=== PATIENT | female | born 1960 | race Caucasian/White ===

== ENCOUNTER 2017-01-18 16:36 | Inpatient (IN) | payer BC ==
[~2017-01-18] VITALS: Ht 167.6 cm; Wt 41.7 kg
--- NOTE | 2017-01-18 16:45 | NUR ---
PATIENT BIB RA D/T SYNCOPAL EPISODE OUTSIDE CLINIC. PATIENT CURRENTLY A/OX 4, BREATHING EVEN AND UNLABORED ON ROOM AIR. NO SOB. PATIENTS VITALS STABLE, SAFETY AND COMFORT MEASURES IN PLACE. AWAITING MD ORDERS.
[2017-01-18] MEDS ORDERED: ONDANSETRON HCL/PF 4 MG/2 ML VIAL ONE (16:58)
[2017-01-18] MEDS ORDERED: IV NS 0.9% 1,000 ML ONE ×2 (16:58→20:50)
[2017-01-18] MEDS ORDERED: IV SET PRIMARY 1 EA INFUS.SET MC ONE (16:58)
[2017-01-18] MEDS ORDERED: ONDANSETRON HCL/PF 4 MG/2 ML VIAL IVP ONE (17:00)
[2017-01-18] MEDS ORDERED: IV NS 0.9% 1,000 ML BAG IV ONE (17:00)
--- NOTE | 2017-01-18 17:00 | NUR ---
DALY ACCESSED PER MD ORDERS.
[2017-01-18 17:04] LABS: BASOPHILS # (AUTO) 0.1 /CMM (0.0-0.2); BASOPHILS % (AUTO) 2.6 % (0.0-2.0); EOSINOPHILS % (AUTO) 0.1 % (0.0-6.0); HEMATOCRIT 43 % (33-45); HEMOGLOBIN 14.3 g/dL (11.5-14.8); LYMPHOCYTES # (AUTO) 1.4 /CMM (0.8-4.8); LYMPHOCYTES % (AUTO) 26.2 % (20.0-44.0); MEAN CORPUSCULAR HEMOGLOBIN 31 PG (26.0-33.0); MEAN CORPUSCULAR HGB CONC 33 g/dl (31.0-36.0); MEAN CORPUSCULAR VOLUME 93 fL (82-100); MONOCYTES # (AUTO) 0.6 /CMM (0.1-1.30); NEUTROPHILS # (AUTO) 3.1 /CMM (1.8-8.9); NEUTROPHILS % (AUTO) 60.1 % (43.0-81.0); PLATELET COUNT (AUTO) 559 /CMM (150-450); RDW COEFFICIENT OF VARIATION 26.3 (11.5-15.0); RED BLOOD CELL COUNT(AUTO) 4.65 MIL/uL (4.0-5.2); WHITE BLOOD COUNT (AUTO) 5.2 K/uL (4.3-11.0)
--- NOTE | 2017-01-18 17:12 | NUR ---
PATIENT MEDICATED PER MD ORDERS.
[2017-01-18 17:18] LABS: ALBUMIN 1.6 g/dL (3.4-5.0); BILIRUBIN,DIRECT 0.1 mg/dL (0.0-0.2); BILIRUBIN,TOTAL 0.4 mg/dL (0.2-1.0); CALCIUM, SERUM 7.7 mg/dL (8.5-10.1); CREATININE 1.7 mg/dL (0.6-1.3); TOTAL PROTEIN, SERUM 5.3 g/dL (6.4-8.2)
[2017-01-18 17:20] LABS: TROPONIN I 0.37 ng/mL (0.00-0.056)
[2017-01-18] MEDS ORDERED: LORA1TAB PO (17:59)
[2017-01-18] MEDS ORDERED: DIPH1TAB70 PO (17:59)
[2017-01-18] MEDS ORDERED: ONDA4TAB5 PO (17:59)
[2017-01-18] MEDS ORDERED: POTASSIUM CHLORIDE 20 MEQ TAB.PRT.SR PO ONE ×2 (18:00→18:08)
[2017-01-18] MEDS ORDERED: [UNRECOGNIZED DRUG - REMARK] IV (18:07)
[2017-01-18] MEDS ORDERED: PROC-11 PO (18:07)
[2017-01-18] MEDS ORDERED: POTASSIUM CL. PREMIX PERIPHER. 50 ML ONE ×2 (18:08→19:05)
[2017-01-18] MEDS ORDERED: IV SET PRIMARY PUMP SET 1 EA INFUS.SET MC ONE ×3 (18:09→20:51)
[2017-01-18] MEDS: POTASSIUM CL. PREMIX PERIPHER. 50 ML IV SCH ×4 (18:22→22:23)
--- NOTE | 2017-01-18 18:37 | NUR ---
CALLED [facility] BIG MACHINE CONSULTANT DOCTOR WAS PAGED.
[2017-01-18] MEDS ORDERED: Magnesium 1GM/D5W 100ML PREMIX 100 ML IV ONE (18:46)
[2017-01-18] MEDS ORDERED: Magnesium 1 GM/2 ML VIAL IV ONE (19:00)
[2017-01-18] MEDS ORDERED: MORPHINE SULFATE INJ 4 MG/ML DISP.SYRIN IV STA (19:09)
[2017-01-18] MEDS ORDERED: MORPHINE SULFATE INJ 4 MG/ML DISP.SYRIN ONE (19:10)
--- NOTE | 2017-01-18 19:30 | NUR ---
TELE/RN NOTES RECEIVED PT. FROM ER VIA [employer]boardsJOHANNA. PT. IS AWAKE, ALERT AND ORIENTED X3. BREATHING EVEN AND UNLABORED ON ROOM AIR. NO SOB, RESPIRATORY DISTRESS OR COMPLAINTS OF PAIN NOTED AT THIS TIME. ORIENTED PT. TO ROOM. PT. STATES SHE IS STILL A LITTLE DIZZY BUT THE LIGHTHEADED FEELING HAS IMPROVED SINCE ADMISSION. PLACED EXTERNAL SHREDDED FILLER CIGAR MAKER MACHINE ON PT. CURRENT RHYTHM = SINUS TACHYCARDIA HR 104. PT. WITH RIGHT UPPER CHEST WALL PORTACATH PRESENT, PATENT AND INTACT ADMINISTERING TO PT. BAG 2 OF 4 KCL AND 1GM MG. PT. WITH FAMILY MEMBER PRESENT AT BEDSIDE. BED IN LOWEST POSITION, SIDE RAILS UP X2, CALL LIGHT WITHIN REACH, WILL CONTINUE TO MONITOR.
[2017-01-18] MEDS ORDERED: LORAZEPAM 1 MG TABLET PO PRN (21:00)
[2017-01-18] MEDS ORDERED: ACETAMINOPHEN 325 MG TABLET PO PRN (21:00)
[2017-01-18] MEDS ORDERED: PROCHLORPERAZINE MALEATE 10 MG TABLET PO PRN (21:00)
[2017-01-18] MEDS ORDERED: ONDANSETRON 4 MG TAB.RAPDIS PO PRN (21:00)
[2017-01-18] MEDS ORDERED: MAG HYDROX/AL HYDROX/SIMETH 30 ML UDC PO PRN (21:00)
[2017-01-18] MEDS ORDERED: ZOLPIDEM TARTRATE 5 MG TABLET PO PRN (21:00)
[2017-01-18] MEDS ORDERED: Z GUARD REMEDY 2 OZ OINT TP PRN (21:00)
[2017-01-18] MEDS ORDERED: MAGNESIUM HYDROXIDE 30 ML UDC PO PRN (21:00)
[2017-01-18] MEDS ORDERED: HYDROCODONE/APAP 5/325MG 1 EACH TABLET PO PRN (21:00)
[2017-01-18] MEDS: IV NS 0.9% 1,000 ML IV PRN (21:03)
[2017-01-18] MEDS: ENOXAPARIN SODIUM 40 MG/0.4 ML DISP.SYRIN SQ SCH (23:15)
[2017-01-19] VITALS (8 sets, daily range): BP systolic 83–134; BP diastolic 60–75
[2017-01-19] MEDS: ONDANSETRON HCL/PF 4 MG/2 ML VIAL IVP PRN ×4 (03:30→23:33)
[2017-01-19] MEDS: HYDROMORPHONE INJ 2 MG/ML DISP.SYRIN IV PRN ×3 (03:31→21:15)
--- NOTE | 2017-01-19 06:19 | NUR ---
TELE/RN NOTES PT. IS LYING IN BED RESTING. BREATHING EVEN AND UNLABORED ON ROOM AIR. NO SOB, RESPIRATORY DISTRESS OR COMPLAINTS OF PAIN NOTED AT THIS TIME. NO COMPLAINTS OF HEADACHE OR DIZZINESS NOTED AT THIS TIME. PT. WITH EXTERNAL MAPPING SPECIALIST PRESENT AND INTACT. CURRENT RHYTHM = SINUS RHYTHM 95. PT. WITH RIGHT UPPER CHEST WALL PORTACATH PRESENT, PATENT AND INTACT ADMINISTERING TO PT. NS @ 75 ML/HR. PT. ALL PT. NEEDS MET. BED IN LOWEST POSITION, SIDE RAILS UP X2, CALL LIGHT WITHIN REACH, WILL ENDORSE TO DAYSHIFT NURSE FOR CONTINUITY OF CARE.
[2017-01-19 06:48] LABS: CALCIUM, SERUM 7.2 mg/dL (8.5-10.1); MAGNESIUM 1.9 mg/dL (1.8-2.4); PHOSPHORUS 2.8 mg/dL (2.5-4.9)
[2017-01-19 06:52] LABS: POTASSIUM 2.6 mmol/L (3.5-5.1)
[2017-01-19 06:53] LABS: BASOPHILS % (AUTO) 0.2 % (0.0-2.0); EOSINOPHILS % (AUTO) 0.8 % (0.0-6.0); HEMATOCRIT 34 % (33-45); HEMOGLOBIN 11.6 g/dL (11.5-14.8); LYMPHOCYTES % (AUTO) 33.4 % (20.0-44.0); MEAN CORPUSCULAR HEMOGLOBIN 31 PG (26.0-33.0); MEAN CORPUSCULAR HGB CONC 34 g/dl (31.0-36.0); MEAN CORPUSCULAR VOLUME 92 fL (82-100); MONOCYTES % (AUTO) 16.4 % (2.0-12.0); NEUTROPHILS # (AUTO) 2.9 /CMM (1.8-8.9); NEUTROPHILS % (AUTO) 49.2 % (43.0-81.0); PLATELET COUNT (AUTO) 427 /CMM (150-450); RDW COEFFICIENT OF VARIATION 27.3 (11.5-15.0); RED BLOOD CELL COUNT(AUTO) 3.71 MIL/uL (4.0-5.2)
--- NOTE | 2017-01-19 07:00 | NUR ---
TELE/RN NOTES RECEIVED CALL FROM LAB WITH CRITICAL POTASSIUM LEVEL OF 2.[address] BLACK[address]. BLACK NEW ORDERS: KCL 40 MEQ IVPB AND REPEAT POTASSIUM LEVEL AFTER REPLACEMENTS ARE GIVEN. WILL CARRY OUT ORDERS AND WILL ENDORSE TO DAYSHIFT NURSE.
--- NOTE | 2017-01-19 07:20 | NUR ---
VETERINARIAN OPENING NOTES RECEIVED PT. FROM NIGHTSHIFT NURSE IN STABLE CONDITION. PT. IS A/O X3. NO SOB OR SIGNS OF DISTRESS NOTED. BREATHING IS EVEN AND UNLABORED. PT. DENIES ANY DIZZINESS AT THIS TIME OR ANY PAIN. SINUS RHYTHM ON THE MONITOR WITH A HR OF 91. RIGHT CHEST WALL POTRACATH PRESENT, PATENT, AND INTACT INFUSION NS @ 75ML/HR. PT IS TOLERATING INFUSION WELL. BED IN LOW LOCKED POSITION, SIDE RAILS UP X2, CALL LIGHT WITHIN REACH. WILL CONTINUE TO MONITOR.
[2017-01-19] MEDS ORDERED: PANTOPRAZOLE 40 MG TABLET.DR PO SCH (07:30)
[2017-01-19] MEDS ORDERED: IV SET PRIMARY PUMP SET 1 EA INFUS.SET MC ONE (08:17)
[2017-01-19 08:39] LABS: BAND % (MANUAL) 5 % (0.0-5.0); EOSINOPHILS % (MANUAL) 1 % (0-4); LYMPHOCYTES % (MANUAL) 33 % (16-48); MONOCYTES % (MANUAL) 13 % (0-11.0); NEUTROPHILS % (MANUAL) 48 (42-76)
[2017-01-19] MEDS: POTASSIUM CL. PREMIX PERIPHER. 50 ML IV SCH ×4 (08:51→12:49)
[2017-01-19] MEDS: IV NS 0.9% 1,000 ML IV PRN (11:32)
[2017-01-19] MEDS ORDERED: TPN/PPN PER PHARMACY XX PRN (13:30)
[2017-01-19] MEDS ORDERED: TPN BAG #1 IV SCH ×8 (16:00)
[2017-01-19] MEDS ORDERED: FEE TPN 1 MIN EA MC ONE (16:04)
[2017-01-19] MEDS ORDERED: FILTER [FOR TRIPLE MIX] SET 1 EA INFUS.SET MC ONE (16:08)
[2017-01-19] MEDS ORDERED: DEXTROSE 50%-WATER 50 ML DISP.SYRIN IV PRN (16:30)
[2017-01-19] MEDS: BLOOD SUGAR DIAGNOSTIC 1 EACH STRIP IN SCH ×2 (18:33→23:22)
--- NOTE | 2017-01-19 18:50 | NUR ---
CLINICAL MEDICAL TRANSCRIPTIONIST CLOSING NOTES PT. REMAINS IN STABLE CONDITION. ALL NEEDS WERE ANTICIPATED FOR DURING SHIFT AND ORDERS CARRIED OUT ACCORDINGLY. TPN IS CURRENTLY INFUSING @40ML/HR. PT. IS TOLERATING INFUSION WELL. NO REDNESS OR SIGNS OF INFILTRATION TO IV SITE. BLOOD SUGAR WILL BE CHECKED IN 4 HOUR PER PROTOCOL. WILL ENDORSE TO NIGHTSHIFT NURSE TO CHECK BS AND CHINMAY
--- NOTE | 2017-01-19 20:00 | NUR ---
RECEIVED PATIENT IN BED, ALERT AND ORIENTED X4, CALM, NO SOB, NO RESPIRATORY DISTRESS, WEAK, COMPLAINING OF FEELING NAUSEOUS ALL DAY, RECEIVED ZOFRAN EARLIER. PER PATIENT, UNABLE TO KEEP ANYTHING SOLID OR LIQUID BY MOUTH. WITH EPISODES OF DIARRHEA WELL. R CHEST LEMUEL CATH IS INTACT AND INFUSING WELL WITH TPN. KEPT SAFE AND COMFORTABLE, CALL LIGHT WITHIN REACH.
--- NOTE | 2017-01-19 20:37 | NUR ---
STARTED NEW LINE TO LEFT WRIST #22, ATTEMPTED X1, GOOD BACK FLOW, PROCEDURE TOLERATED WELL.
[2017-01-19] MEDS: ENOXAPARIN SODIUM 40 MG/0.4 ML DISP.SYRIN SQ SCH (21:14)
--- NOTE | 2017-01-19 21:30 | NUR ---
BP IS 89/65 HR 97, PUT PATIENT ON TRENDELENBERG POSITION, ON NS AT 75 CC/HR, WILL CONTINUE TO TAKE BP
--- NOTE | 2017-01-19 22:18 | NUR ---
PATIENT ON TRENDELENBERG POSITION, BP 93/48 HR 96
[2017-01-19] MEDS: INSULIN REGULAR, HUMAN 100 UNIT/ML 3 ML VIAL SQ PRN (23:28)
--- NOTE | 2017-01-19 23:37 | NUR ---
COMPLAINING OF NAUSEA WITHOUT EMESIS, GIVEN ZOFRAN 4MG IVP, WILL CONTINUE TO MONITOR.
[2017-01-20] VITALS (7 sets, daily range): BP systolic 84–108; BP diastolic 48–81
--- NOTE | 2017-01-20 03:44 | NUR ---
NEW ORDER TO CHANGED PROTONIX FROM PO TO IVP, PATIENT UNABLE TO TOLERATE PO MEDICATIONS
[2017-01-20] MEDS: DIPHENOXYLATE HCL/ATROP SULF 1 UDTAB TABLET PO PRN ×2 (05:19→05:25)
[2017-01-20] MEDS: ONDANSETRON HCL/PF 4 MG/2 ML VIAL IVP PRN ×2 (05:20→12:28)
[2017-01-20] MEDS: BLOOD SUGAR DIAGNOSTIC 1 EACH STRIP IN SCH ×3 (05:38→17:47)
[2017-01-20] MEDS: INSULIN REGULAR, HUMAN 100 UNIT/ML 3 ML VIAL SQ PRN ×3 (05:42→17:47)
--- NOTE | 2017-01-20 06:04 | NUR ---
OFFERED LOMOTIL, PATIENT SAID YES, WHEN GIVING LOMOTIL, PATIENT REFUSED. PER PATIENT "I CANNOT TOLERATE ANYTHING I SWALLOW." EXPLAINED TO PATIENT ZOFRAN WAS GIVEN ALSO. PATIENT STILL REFUSED. LOMOTIL WASTED.
--- NOTE | 2017-01-20 06:47 | NUR ---
PATIENT RESTING IN BED, ALERT AND AWAKE, NO SOB, TOLERATING ROOM AIR, 02 SAT 98%, PROVIDED PAIN MEDICATION AND ANTI EMETIC DURING SHIFT, RIGHT CHEST LEMUEL CATH PATENT AND INFUSING WELL WITH TPN AT 50 CC/HR, HAD X3 LBM, MALODOROUS, ASSISTED WITH SELF CARE, WEAK, UNABLE TO STAND, ASSISTED TO BEDSIDE COMMODE. ALL NEEDS ATTENDED, CALL LIGHT WITHIN REACH.
--- NOTE | 2017-01-20 07:10 | NUR ---
BACK HOE MACHINE OPERATOR NOTES PATIENT IN BED, A/OX4. BREATHING EVEN AND NON LABORED. SINUS RHYTHM HR 86 ON THE MONITOR. RIGHT CHEST PORT A CATH INTACT, ON TPN (BAG#1) INFUSING AT 50ML/HR. NO C/O PAIN AT THIS TIME. CALL LIGHT WITHIN REACH. WILL CONT TO MONITOR.
[2017-01-20 07:15] LABS: CALCIUM, SERUM 7.4 mg/dL (8.5-10.1); CREATININE 0.7 mg/dL (0.6-1.3); PHOSPHORUS 1.2 mg/dL (2.5-4.9); POTASSIUM 2.9 mmol/L (3.5-5.1)
[2017-01-20] MEDS: HYDROMORPHONE INJ 2 MG/ML DISP.SYRIN IV PRN ×4 (07:52→22:12)
[2017-01-20] MEDS: PANTOPRAZOLE 40 MG VIAL IV SCH (07:58)
[2017-01-20] MEDS ORDERED: ASPIRIN 325 MG TABLET PO SCH (09:00)
[2017-01-20] MEDS ORDERED: IV NS 0.9% 1,000 ML BAG IV SCH (11:00)
[2017-01-20] MEDS ORDERED: IV SET PRIMARY PUMP SET 1 EA INFUS.SET MC ONE (11:00)
[2017-01-20] MEDS: IV NS 0.9% 1,000 ML IV PRN (11:41)
[2017-01-20] MEDS ORDERED: SECONDARY IV SET 1 EA INFUS.SET MC ONE (12:21)
[2017-01-20] MEDS: POTASSIUM PHOSPHATE MM 7.5 MMOL in IV D5W 100 ML IV SCH ×2 (12:32→17:01)
[2017-01-20] MEDS ORDERED: TPN BAG #2 IV SCH ×9 (13:00)
[2017-01-20] MEDS ORDERED: TPN BAG #3 IV SCH ×9 (13:00)
[2017-01-20] MEDS ORDERED: FILTER [FOR TRIPLE MIX] SET 1 EA INFUS.SET MC ONE (14:45)
[2017-01-20] MEDS: BOOST PLUS FOOD-CHOCLATE 237 ML BOX PO SCH (18:00)
--- NOTE | 2017-01-20 18:44 | NUR ---
MOTION PICTURE PROJECTIONIST CLOSING NOTES PATIENT IN BED, NOT IN DISTRESS. BLOOD SUGAR MONITORED, ON TPN (BAG #2) INFUSING AT 60ML/HR, TOLERATING WELL. ABDOMEN/PELVIS CT RESULT PENDING. NO BOWEL MOVEMENT TODAY, NO DIARRHEA. FOR STOOL CDIFF. NO C/O PAIN AT THIS TIME. LABS IN AM. CALL LIGHT WITHIN REACH. WILL ENDORSE TO HYDRO OPERATOR RN FOR CONTINUITY OF CARE.
--- NOTE | 2017-01-20 19:10 | NUR ---
RN NOTES RECEIVED PT AWAKE, HOB ELEVATED, NO SOB, NOT IN DISTRESS, ON ROOM AIR AND TOLERATED WELL. PT ALERT AND ORIENTED X3, ABDOMINAL PAIN AT TOLERABLE LEVEL AT THIS TIME 10/29. DENIES NAUSEA, VOMITING AND DIARRHEA. TELEMONITOR READS SINUS RHYTHM WITH HEART RATE AT 98. IV ACCESS ON LEFT HAND PATENT AND INTACT. WITH PORT A CATH AT RIGHT UPPER CHEST WITH ONGOING TPN #2 AT 60 ML/HR AND NS AT 75 ML/HR INFUSING WELL. KEPT COMFORTABLE AND ATTENDED. WILL CONTINUE TO MONITOR PT.
[2017-01-20] MEDS: ENOXAPARIN SODIUM 40 MG/0.4 ML DISP.SYRIN SQ SCH (21:08)
--- NOTE | 2017-01-20 21:15 | NUR ---
RN NOTES PT VERBALIZING ABDOMINAL DISCOMFORT, HEART BURN, MAALOX SUSP 30 ML GIVEN TO THE PT BUT PT SAID SHE CANNOT TOLERATE IT. PER SHE WILL VOMIT IF SHE WILL TAKE IT. PT DID NOT TAKE THE MAALOX SUSP AND WASTED. WILL CONTINUE TO MONITOR PT.
--- NOTE | 2017-01-20 22:12 | NUR ---
RN NOTES PT COMPLAINS OF ABDOMINAL PAIN 02/28, DILAUDID 1 MG GIVEN IV. WILL CONTINUE TO MONITOR PT.
[2017-01-21] VITALS (7 sets, daily range): BP systolic 103–127; BP diastolic 69–78
[2017-01-21] MEDS: BLOOD SUGAR DIAGNOSTIC 1 EACH STRIP IN SCH ×4 (00:05→17:53)
[2017-01-21] MEDS: INSULIN REGULAR, HUMAN 100 UNIT/ML 3 ML VIAL SQ PRN ×4 (00:05→17:53)
--- NOTE | 2017-01-21 00:05 | NUR ---
RN NOTES BLOOD SUGAR CHECKED 128 MG/DL, NO INSULIN COVERAGE PER SLIDING SCALE. NO SIGNS OF HYPOGLYCEMIA NOTED. WILL CONTINUE TO MONITOR PT.
[2017-01-21] MEDS: ONDANSETRON HCL/PF 4 MG/2 ML VIAL IVP PRN (02:19)
--- NOTE | 2017-01-21 02:19 | NUR ---
RN NOTES PT VOMITED ONCE AND STILL FEELS NAUSEATED, ZOFRAN 4 MG GIVEN IV. WILL CONTINUE TO MONITOR PT.
[2017-01-21] MEDS: HYDROMORPHONE INJ 2 MG/ML DISP.SYRIN IV PRN ×5 (02:23→20:19)
--- NOTE | 2017-01-21 02:23 | NUR ---
RN NOTES PT COMPLAINS OF ABDOMINAL PAIN 02/28, DILAUDID 1MG GIVEN IV.WILL CONTINUE TO MONITOR PT.
--- NOTE | 2017-01-21 06:06 | NUR ---
RN NOTES BLOOD SUGAR CHECKED 127 MG/DL, NO INSULIN COVERAGE PER SLIDING SCALE. NO SIGNS OF HYPOGLYCEMIA NOTED. WILL CONTINUE TO MONITOR PT.
--- NOTE | 2017-01-21 07:10 | NUR ---
RN NOTES PT ASLEEP, BREATHING REGULAR AND UNLABORED, NO SIGNS OF DISTRESS AND DISCOMFORT NOTED. VITAL SIGNS STABLE, AFEBRILE. TELE MONITOR READS SINUS RHYTHM WITH HEART RATE AT 94. PT VOMITED ONCE, NO EPISODE OF WATERY STOOL. KEPT PAIN AT TOLERABLE LEVEL. NOTED WITH POOR PO INTAKE, ENCOURAGE TO TAKE BOOST. ALL NEEDS ATTENDED. WILL ENDORSE TO MORNING RN FOR CONTINUITY OF CARE.
--- NOTE | 2017-01-21 07:15 | NUR ---
LEAD APPLICATION ARCHITECT NOTES RECEIVED PATIENT IN BED, A/O X4. BREATHING EVEN AND NON LABORED. TPN INFUSING AT 60ML/HR. NO C/O PAIN AT THIS TIME. CALL LIGHT WITHIN REACH. WILL CONT TO MONITOR.
[2017-01-21 07:29] LABS: BASOPHILS % (AUTO) 0.2 % (0.0-2.0); EOSINOPHILS # (AUTO) 0.1 /CMM (0.0-0.7); EOSINOPHILS % (AUTO) 0.9 % (0.0-6.0); HEMATOCRIT 31 % (33-45); HEMOGLOBIN 10.4 g/dL (11.5-14.8); LYMPHOCYTES # (AUTO) 1.5 /CMM (0.8-4.8); LYMPHOCYTES % (AUTO) 24.1 % (20.0-44.0); MEAN CORPUSCULAR HEMOGLOBIN 32 PG (26.0-33.0); MEAN CORPUSCULAR HGB CONC 34 g/dl (31.0-36.0); MEAN CORPUSCULAR VOLUME 94 fL (82-100); MONOCYTES # (AUTO) 0.3 /CMM (0.1-1.30); MONOCYTES % (AUTO) 4.9 % (2.0-12.0); NEUTROPHILS # (AUTO) 4.3 /CMM (1.8-8.9); NEUTROPHILS % (AUTO) 69.9 % (43.0-81.0); PLATELET COUNT (AUTO) 376 /CMM (150-450); RDW COEFFICIENT OF VARIATION 28.5 (11.5-15.0); WHITE BLOOD COUNT (AUTO) 6.2 K/uL (4.3-11.0)
[2017-01-21 07:55] LABS: BILIRUBIN,TOTAL 0.3 mg/dL (0.2-1.0); CALCIUM, SERUM 6.9 mg/dL (8.5-10.1); CREATININE 0.5 mg/dL (0.6-1.3); PHOSPHORUS 1.5 mg/dL (2.5-4.9); POTASSIUM 3.2 mmol/L (3.5-5.1)
[2017-01-21 07:58] LABS: ALBUMIN 1.3 g/dL (3.4-5.0)
[2017-01-21] MEDS: PANTOPRAZOLE 40 MG VIAL IV SCH (08:39)
[2017-01-21] MEDS: IV NS 0.9% 1,000 ML IV PRN ×2 (08:46→14:23)
[2017-01-21] MEDS ORDERED: FILTER [FOR TRIPLE MIX] SET 1 EA INFUS.SET MC ONE (09:11)
[2017-01-21] MEDS: BOOST PLUS FOOD-CHOCLATE 237 ML BOX PO SCH ×3 (09:23→17:00)
[2017-01-21 10:03] LABS: BAND % (MANUAL) 8 % (0.0-5.0); EOSINOPHILS % (MANUAL) 3 % (0-4); LYMPHOCYTES % (MANUAL) 25 % (16-48); MONOCYTES % (MANUAL) 10 % (0-11.0); NEUTROPHILS % (MANUAL) 54 (42-76)
--- NOTE | 2017-01-21 11:29 | NUR ---
PATIENT IS SEEN BY DR. JOSEPH TODAY. PLACE RECTAL TUBE, PATIENT TOLERATED WELL. WILL COLLECT STOOL AND REMOVE RECTAL TUBE AFTER SAMPLE IS COLLECTED. URINE SEND TO LAB. LOW ALBUMIN 1.3 WITH NO NEW ORDERS AT THIS TIME, PER DR. JOSEPH, DR. BLACK IS AWARE.
[2017-01-21 11:32] LABS: APPEARANCE,URINE CLOUDY (CLEAR); BILIRUBIN,URINE NEGATIVE (NEGATIVE); BLOOD, URINE TRACE-INTA Ery/uL (NEGATIVE); COLOR,URINE YELLOW (YELLOW); KETONES,URINE NEGATIVE (NEGATIVE); LEUKOCYTE ESTERASE ,URINE NEGATIVE (NEGATIVE); NITRITE, URINE POSITIVE (NEGATIVE); PROTEIN,URINE TRACE mg/dl (NEGATIVE); UGLUCOSE NEGATIVE (NEGATIVE); UROBILINOGEN,URINE 0.2 EU/dL (0.2)
[2017-01-21 11:48] LABS: BACTERIA,URINE Many /HPF (None Seen)
[2017-01-21] MEDS ORDERED: SECONDARY IV SET 1 EA INFUS.SET MC ONE (11:49)
[2017-01-21 11:50] LABS: RBC,URINE 0-2 /HPF (0-2); SQUAMOUS EPITHELIAL CELL,UR Rare /HPF (None Seen)
--- NOTE | 2017-01-21 12:28 | NUR ---
ELEVATED LACTIC ACID 2.[address] BLACK WITH NO NEW ORDERS THIS TIME.
[2017-01-21] MEDS: METRONIDAZOLE 500MG/ NS 100ML 500 MG in PREMIX 1 EA IV SCH ×2 (12:59→20:42)
[2017-01-21] MEDS ORDERED: TPN BAG #5 IV PRN ×9 (13:30)
[2017-01-21] MEDS ORDERED: TPN BAG #4 IV SCH ×7 (13:30)
[2017-01-21 13:40] LABS: BILIRUBIN,DIRECT 0.1 mg/dL (0.0-0.2)
[2017-01-21] MEDS: DIPHENOXYLATE HCL/ATROP SULF 1 UDTAB TABLET PO PRN (13:42)
--- NOTE | 2017-01-21 13:45 | NUR ---
INCREASED TPN RATE TO 80ML/HR AND DECREASED IV NS TO 55ML/HR, PER ISIDRA-RX WHO SPOKE TO DR. BLACK.
[2017-01-21] MEDS ORDERED: IV NS 0.9% 1,000 ML BAG IV PRN (14:00)
--- NOTE | 2017-01-21 14:21 | NUR ---
LEVAQUIN IV NOT AVAILABLE AT THIS TIME. CALLED PHARMACY, WILL FOLLOW UP.
[2017-01-21] MEDS: LEVOFLOXACIN 500 MG /D5W 100ML 500 MG in PREMIX 1 EA IV SCH (14:28)
--- NOTE | 2017-01-21 15:24 | NUR ---
PLACE PATIENT ON NPO STATUS, FOR HIDA SCAN AT 8PM. PATIENT INFORMED.
--- NOTE | 2017-01-21 15:52 | NUR ---
LACTIC ACID STILL ELEVATED 3.[address] BLACK WITH NO NEW ORDERS AT THIS TIME.
[2017-01-21] MEDS: POTASSIUM PHOSPHATE MM 7.5 MMOL in IV D5W 100 ML IV SCH ×2 (16:01→19:21)
--- NOTE | 2017-01-21 17:54 | NUR ---
PER REBECA, ONLY REGULAR HIDA SCAN CAN BE DONE, AND TO TEST HIDA SCAN WITH CCK IS NOT LONGER AVAILABLE AT THIS TIME IN THE FACILITY. NOTIFIED DR. BLACK IF REGULAR HIDA SCAN IS OK TO DO WITHOUT CCK, AWAITING MD TO CALL BACK. INFORMED PATIENT. WILL ENDORSE TO CARLOS MANUEL JONES RN FOR CONTINUITY OF CARE. PLACE PATIENT BACK TO REGULAR DIET, PER BEATRIS HIDA SCAN POSSIBLE TO BE DONE TOMORROW Addendum: 01/21/17 at 1814 by TORIE PETE RN CONTINUATION FROM ABOVE NOTES 01/22/17
--- NOTE | 2017-01-21 18:43 | NUR ---
KINESIOLOGIST CLOSING NOTES PATIENT IN BED, NOT IN DISTRESS. SINUS RHYTHM SINUS TACH HR 100 ON TELE MONITOR. BLOOD SUGAR MONITORED, NO S/S OF HYPO/HYPERGLYCEMIA. TPN INFUSING AT 80ML/HR AND IV NS INFUSING AT 55ML/HR, TOLERATING WELL. ON ANTIBIOTIC WITH NO ADVERSE REACTION, AFEBRILE. NO C/O PAIN AT THIS TIME. FOR POSSIBLE HIDA SCAN TOMORROW. WILL ENDORSE TO BRAKE OPERATOR HEAVY DUTY RN FOR CONTINUITY OF CARE.
--- NOTE | 2017-01-21 19:15 | NUR ---
RN NOTES RECEIVED PT AWAKE, HOB ELEVATED, NO SOB, NOT IN DISTRESS, ON ROOM AIR AND TOLERATED WELL. PT ALERT AND ORIENTED X3, ABDOMINAL PAIN AT TOLERABLE LEVEL AT THIS TIME 10/29. DENIES NAUSEA, VOMITING AND DIARRHEA. TELEMONITOR READS SINUS RHYTHM WITH HEART RATE AT 100. IV ACCESS ON LEFT HAND PATENT AND INTACT. WITH PORT A CATH AT RIGHT UPPER CHEST WITH ONGOING TPN #3 AT 80 ML/HR AND NS AT 55 ML/HR INFUSING WELL. KEPT COMFORTABLE AND ATTENDED. WILL CONTINUE TO MONITOR PT.
--- NOTE | 2017-01-21 20:19 | NUR ---
RN NOTES PT COMPLAINS OF ABDOMINAL PAIN 02/28, DILAUDID 1 MG GIVEN IV. WILL CONTINUE TO MONITOR PT.
[2017-01-21] MEDS: ENOXAPARIN SODIUM 40 MG/0.4 ML DISP.SYRIN SQ SCH (20:43)
[2017-01-22] VITALS (7 sets, daily range): BP systolic 113–130; BP diastolic 60–79
[2017-01-22] MEDS: BLOOD SUGAR DIAGNOSTIC 1 EACH STRIP IN SCH ×5 (00:30→23:29)
[2017-01-22] MEDS: INSULIN REGULAR, HUMAN 100 UNIT/ML 3 ML VIAL SQ PRN ×4 (00:31→23:30)
[2017-01-22] MEDS: HYDROMORPHONE INJ 2 MG/ML DISP.SYRIN IV PRN ×5 (00:35→23:19)
--- NOTE | 2017-01-22 00:35 | NUR ---
RN NOTES PT VERBALIZING ABDOMINAL PAIN 02/28, DILAUDID 1 MG GIVEN IV. WILL CONTINUE TO MONITOR PT.
[2017-01-22] MEDS: METRONIDAZOLE 500MG/ NS 100ML 500 MG in PREMIX 1 EA IV SCH ×3 (05:15→20:36)
--- NOTE | 2017-01-22 05:36 | NUR ---
RN NOTES PT COMPLAINS OF ABDOMINAL PAIN 02/28, DILAUDID 1 MG GIVEN IV. WILL CONTINUE TO MONITOR PT.
--- NOTE | 2017-01-22 05:41 | NUR ---
RN NOTES BLOOD SUGAR CHECKED 114 MG/DL, NO INSULIN COVERAGE PER SLIDING SCALE. NO SIGNS OF HYPOGLYCEMIA NOTED. WILL CONTINUE TO MONITOR.
--- NOTE | 2017-01-22 07:10 | NUR ---
RN NOTES PT ASLEEP, BREATHING REGULAR AND UNLABORED, NO SIGNS OF DISTRESS AND DISCOMFORT NOTED. VITAL SIGNS STABLE, AFEBRILE. TELE MONITOR READS SINUS RHYTHM WITH HEART RATE AT 88. NO EPISODE OF VOMITING, NOTED WITH WATERY STOOL X1. KEPT PAIN AT TOLERABLE LEVEL. NOTED WITH POOR PO INTAKE, ENCOURAGE TO TAKE BOOST, KEPT NPO AFTER MIDNIGHT FOR POSSIBLE HIDA SCAN TODAY. ALL NEEDS ATTENDED. WILL ENDORSE TO MORNING RN FOR CONTINUITY OF CARE.
[2017-01-22 07:16] LABS: BASOPHILS % (AUTO) 0.5 % (0.0-2.0); EOSINOPHILS # (AUTO) 0.1 /CMM (0.0-0.7); HEMATOCRIT 27 % (33-45); HEMOGLOBIN 9.1 g/dL (11.5-14.8); LYMPHOCYTES # (AUTO) 1.6 /CMM (0.8-4.8); LYMPHOCYTES % (AUTO) 25.2 % (20.0-44.0); MEAN CORPUSCULAR HEMOGLOBIN 31 PG (26.0-33.0); MEAN CORPUSCULAR HGB CONC 34 g/dl (31.0-36.0); MEAN CORPUSCULAR VOLUME 94 fL (82-100); MONOCYTES # (AUTO) 1.2 /CMM (0.1-1.30); MONOCYTES % (AUTO) 19.3 % (2.0-12.0); NEUTROPHILS # (AUTO) 3.4 /CMM (1.8-8.9); PLATELET COUNT (AUTO) 311 /CMM (150-450); RDW COEFFICIENT OF VARIATION 29.1 (11.5-15.0); WHITE BLOOD COUNT (AUTO) 6.5 K/uL (4.3-11.0)
--- NOTE | 2017-01-22 08:00 | NUR ---
CRAB FISHER AM NOTES RECEIVED PT AWAKE, HOB ELEVATED, NO SOB, NOT IN DISTRESS, ON ROOM AIR AND TOLERATED WELL. PT ALERT AND ORIENTED X3, DENIES NAUSEA, VOMITING AND DIARRHEA. TELEMONITOR READS SINUS RHYTHM WITH HEART RATE AT 88. IV ACCESS ON LEFT WRIST PATENT AND INTACT. WITH PORT A CATH AT RIGHT UPPER CHEST WITH ONGOING TPN #4 AT 80 ML/HR AND NS AT 55 ML/HR INFUSING WELL. KEPT COMFORTABLE AND ATTENDED. CALL LIGHT PLACED WITHIN REACH.WILL CONTINUE TO MONITOR PT.
[2017-01-22 08:33] LABS: BILIRUBIN,TOTAL 0.2 mg/dL (0.2-1.0); POTASSIUM 3.7 mmol/L (3.5-5.1); TOTAL PROTEIN, SERUM 3.7 g/dL (6.4-8.2)
[2017-01-22 08:35] LABS: CALCIUM, SERUM 6.8 mg/dL (8.5-10.1)
[2017-01-22 08:36] LABS: BILIRUBIN,DIRECT 0.1 mg/dL (0.0-0.2); CREATININE 0.4 mg/dL (0.6-1.3); MAGNESIUM 1.9 mg/dL (1.8-2.4); PHOSPHORUS 1.9 mg/dL (2.5-4.9)
[2017-01-22 08:38] LABS: ALBUMIN 1.1 g/dL (3.4-5.0)
[2017-01-22] MEDS: BOOST PLUS FOOD-CHOCLATE 237 ML BOX PO SCH ×3 (09:00→17:04)
--- NOTE | 2017-01-22 09:00 | NUR ---
PT'S RT EARLOBE MULTIPLE EARRINGS' SKIN AREA IS RED AND PT ASKED FOR ALCOHOL PAD TO WIPE THE REDDISH AREA.PT STATED THAT SHE HAD THIS EARRINGS FOR 23 YRS AND NEED PLIERS TO REMOVE THEM.TAYLOR FISHER,SEED CORN PRODUCTION MANAGER AWARE BUT WE HAVE NO INSTRUMENT TO REMOVE THEM.
[2017-01-22 09:15] LABS: EOSINOPHILS % (MANUAL) 1 % (0-4); LYMPHOCYTES % (MANUAL) 11 % (16-48); MONOCYTES % (MANUAL) 13 % (0-11.0); NEUTROPHILS % (MANUAL) 75 (42-76)
[2017-01-22] MEDS ORDERED: TPN BAG #6 IV PRN ×16 (09:30)
[2017-01-22] MEDS ORDERED: TPN BAG #7 IV PRN ×9 (09:30)
[2017-01-22] MEDS ORDERED: Sodium Phosphate 15 MMOL in IV D5W 250 ML IV ONE (10:00)
[2017-01-22] MEDS: PANTOPRAZOLE 40 MG VIAL IV SCH (10:01)
--- NOTE | 2017-01-22 11:44 | NUR ---
Pt was brought down by radiology staff for HIDA scan procedure.
--- NOTE | 2017-01-22 12:18 | NUR ---
NM:HIDA SCAN WAS COMPLETED. TECH:RB.
--- NOTE | 2017-01-22 13:33 | NUR ---
Pt came back from Radiology post HIDA scan and CT chest scan with stable V/S
--- NOTE | 2017-01-22 13:44 | NUR ---
RESUMED INFUSING PT'S TPN AND SODIUM PHOSPHATE IV-INFUSING WELL.
[2017-01-22] MEDS: LEVOFLOXACIN 500 MG /D5W 100ML 500 MG in PREMIX 1 EA IV SCH (14:47)
[2017-01-22] MEDS ORDERED: IV SET PRIMARY PUMP SET 1 EA INFUS.SET MC ONE ×2 (15:03→20:26)
--- NOTE | 2017-01-22 15:19 | NUR ---
LEFT WRIST H/L GOT INFILTRATED SO WE PLACED A NEW ONE H/L TO HER LFA G 22.PT TOLERATED WELL WITH GOOD BACKFLOW OF BLOOD AND PATENT.
--- NOTE | 2017-01-22 16:06 | NUR ---
CLARIFIED WITH LAB AND STATED THAT C.DIFF WAS DONE YESTERDAY EXCEPT THE STOOL FOR WBC,C/S AND OCCULT BLOOD.WENDY COLLECT STOOL AGAIN.
--- NOTE | 2017-01-22 16:16 | NUR ---
EXPLAINED TO THE PT THAT WE NEED TO COLLECT HER STOOL SAMPLE ONCE AGAIN AND PT STARTED CRYING THAT SHE DOESN'T WANT RECTAL TUBE TO BE REINSERTED AGAIN.EXPLAINED TO THE PT THAT WE WILL JUST COLLECT HER STOOL VIA HAT IN THE COMMODE.PT STOPPED CRYING.EMOTIONAL SUPPORT AND ACTIVE LISTENING PROVIDED.
--- NOTE | 2017-01-22 18:00 | NUR ---
COLLECTED LIQUID STOOL SAMPLE FOR OB,WBC AND C/S FROM PT POST VOIDING IN A SEPERATE CONTAINER AND CALLED LAB TO JUNIOR LINUX ADMINISTRATOR.PT SITTING IN BED TALKING ON THE PHONE DENIES PAIN OR DISTRESS.AWAITING FOR DR MIRANDA TO SEE PT.CALL LIGHT PLACED WITHIN REACH.
--- NOTE | 2017-01-22 19:20 | NUR ---
RN NOTES RECEIVED PT AWAKE, HOB ELEVATED, NO SOB, NOT IN DISTRESS, ON ROOM AIR AND TOLERATED WELL. PT ALERT AND ORIENTED X3, ABDOMINAL PAIN AT TOLERABLE LEVEL AT THIS TIME. DENIES NAUSEA AND VOMITING. IV ACCESS ON LEFT FORE ARM PATENT AND INTACT. WITH PORT A CATH AT RIGHT UPPER CHEST WITH ONGOING TPN #5 AT 80 ML/HR AND NS AT 55 ML/HR INFUSING WELL. KEPT COMFORTABLE AND ATTENDED. WILL CONTINUE TO MONITOR PT.
[2017-01-22] MEDS ORDERED: FILTER SET SAVER IV SET 1 EA INFUS.SET MC ONE (20:26)
[2017-01-22] MEDS: ENOXAPARIN SODIUM 40 MG/0.4 ML DISP.SYRIN SQ SCH (20:40)
[2017-01-22] MEDS: DIPHENOXYLATE HCL/ATROP SULF 1 UDTAB TABLET PO PRN (23:19)
[2017-01-22] MEDS: IV NS 0.9% 1,000 ML IV PRN (23:19)
--- NOTE | 2017-01-22 23:19 | NUR ---
RN NOTES PT ASSISTED TO THE BEDSIDE COMMODE WITH EPISODE OF WATERY STOOL NOTED, LOMOTIL GIVEN PO. PT VERBALIZED ABDOMINAL PAIN 8/10, DILAUDID 1 MG GIVEN IV. WILL CONTINUE TO MONITOR ACCORDINGLY.
--- NOTE | 2017-01-22 23:30 | NUR ---
RN NOTES BLOOD SUGAR CHECKED 112 MG/DL, NO INSULIN COVERAGE PER SLIDING SCALE.
[2017-01-23] MEDS: HYDROMORPHONE INJ 2 MG/ML DISP.SYRIN IV PRN ×5 (03:24→22:23)
--- NOTE | 2017-01-23 03:24 | NUR ---
RN NOTES PT COMPLAINS OF ABDOMINAL PAIN 02/28, DILAUDID 1 MG GIVEN IV. WILL CONTINUE TO MONITOR PT.
[2017-01-23] MEDS: METRONIDAZOLE 500MG/ NS 100ML 500 MG in PREMIX 1 EA IV SCH ×3 (05:31→21:02)
[2017-01-23] MEDS: BLOOD SUGAR DIAGNOSTIC 1 EACH STRIP IN SCH ×3 (05:42→17:43)
[2017-01-23 07:21] LABS: BASOPHILS % (AUTO) 0.2 % (0.0-2.0); EOSINOPHILS # (AUTO) 0.1 /CMM (0.0-0.7); HEMATOCRIT 28 % (33-45); HEMOGLOBIN 9.4 g/dL (11.5-14.8); LYMPHOCYTES # (AUTO) 1.8 /CMM (0.8-4.8); LYMPHOCYTES % (AUTO) 25.8 % (20.0-44.0); MEAN CORPUSCULAR HEMOGLOBIN 32 PG (26.0-33.0); MEAN CORPUSCULAR HGB CONC 33 g/dl (31.0-36.0); MEAN CORPUSCULAR VOLUME 95 fL (82-100); MONOCYTES # (AUTO) 1.4 /CMM (0.1-1.30); MONOCYTES % (AUTO) 19.3 % (2.0-12.0); NEUTROPHILS # (AUTO) 3.8 /CMM (1.8-8.9); NEUTROPHILS % (AUTO) 53.7 % (43.0-81.0); PLATELET COUNT (AUTO) 316 /CMM (150-450); RDW COEFFICIENT OF VARIATION 29.2 (11.5-15.0); RED BLOOD CELL COUNT(AUTO) 2.98 MIL/uL (4.0-5.2); WHITE BLOOD COUNT (AUTO) 7.1 K/uL (4.3-11.0)
--- NOTE | 2017-01-23 07:26 | NUR ---
RN NOTES PT ASLEEP, BREATHING REGULAR AND UNLABORED, NO SIGNS OF DISTRESS AND DISCOMFORT NOTED. VITAL SIGNS STABLE, AFEBRILE. NO EPISODE OF VOMITING, NOTED WITH WATERY STOOL X5. KEPT PAIN AT TOLERABLE LEVEL. NOTED WITH POOR PO INTAKE, ENCOURAGED INCREASE PO INTAKE AND TO TAKE BOOST AT BEDSIDE. ALL NEEDS ATTENDED. WILL ENDORSE TO MORNING RN FOR CONTINUITY OF CARE.
--- NOTE | 2017-01-23 07:30 | NUR ---
RN MS NOTES PT IN BED, AWAKE, ALERT AND ORIENTED, WITH COMPLAINT OF ABDOMINAL PAIN, RESPIRATIONS REGULAR AND NOT LABORED, CALL LIGHT WITHIN REACH, IVF AND TPN INFUSING WELL, NEEDS ATTENDED.
[2017-01-23 07:52] LABS: CALCIUM, SERUM 7.2 mg/dL (8.5-10.1); CREATININE 0.4 mg/dL (0.6-1.3); MAGNESIUM 1.6 mg/dL (1.8-2.4); PHOSPHORUS 2.4 mg/dL (2.5-4.9)
[2017-01-23] MEDS: DIPHENOXYLATE HCL/ATROP SULF 1 UDTAB TABLET PO PRN ×2 (07:53→17:59)
[2017-01-23 07:58] LABS: THYROID STIMULATING HORMONE 12.783 uIU/mL (0.358-3.74)
[2017-01-23 08:00] VITALS: BP 127/63
[2017-01-23] MEDS: PANTOPRAZOLE 40 MG VIAL IV SCH (08:09)
[2017-01-23] MEDS: ONDANSETRON HCL/PF 4 MG/2 ML VIAL IVP PRN ×2 (08:17→17:59)
[2017-01-23 08:21] LABS: BAND % (MANUAL) 2 % (0.0-5.0); LYMPHOCYTES % (MANUAL) 18 % (16-48); MONOCYTES % (MANUAL) 17 % (0-11.0); NEUTROPHILS % (MANUAL) 63 (42-76)
[2017-01-23] MEDS: BOOST PLUS FOOD-CHOCLATE 237 ML BOX PO SCH ×3 (08:21→16:50)
[2017-01-23] MEDS ORDERED: MAGNESIUM OXIDE 400 MG TABLET PO ONE (09:30)
[2017-01-23] MEDS ORDERED: TPN BAG #7 IV PRN ×9 (10:03)
[2017-01-23] MEDS: NEOMY SULF/BACITRAC ZN/POLY 15 GM TUBE TP SCH ×2 (12:03→16:51)
[2017-01-23] MEDS: LEVOFLOXACIN 500 MG /D5W 100ML 500 MG in PREMIX 1 EA IV SCH (12:03)
--- NOTE | 2017-01-23 13:05 | NUR ---
RN MS NOTES PT IN BED, RESTING, ALERT AND ORIENTED, PAIN MEDICATION GIVEN FOR ABDOMINAL PAIN, VERBALIZED RELIEF AFTER ADMINISTRATION, STILL HAVING LOOSE STOOL BUT WITH SOME FORMED PARTICLES, TPN INFUSING WELL, SEEN BY DOUG VAZQUEZ, REMOVED RIGHT EARRING, TREATMENT DONE TO RIGHT EAR REDNESS, CALL LIGHT WITHIN REACH, NEEDS ATTENDED.
[2017-01-23 16:00] VITALS: BP 138/83
[2017-01-23] MEDS ORDERED: SECONDARY IV SET 1 EA INFUS.SET MC ONE (16:50)
--- NOTE | 2017-01-23 18:50 | NUR ---
RN MS NOTES PT IN BED, AWAKE, ALERT AND ORIENTED, WATCHING TV, PAIN MEDICATION GIVEN FOR PAIN MANAGEMENT ORDERED, VERBALIZED RELIEF AFTER ADMINISTRATION, ABLE TO WALK TO THE BATHROOM WITH A WALKER, STATES THAT SHE FEELS BETTER TODAY, NOTED WITH IMPROVEMENT WITH ORAL INTAKE, SEEN BY DR. JOSEPH, PLAN OF CARE DISCUSSED WITH PATIENT, VERBALIZED UNDERSTANDING.
--- NOTE | 2017-01-23 19:20 | NUR ---
RN NOTES RECEIVED PT AWAKE, HOB ELEVATED, NO SOB, NOT IN DISTRESS, ON ROOM AIR AND TOLERATED WELL. PT ALERT AND ORIENTED X3, ABDOMINAL PAIN AT TOLERABLE LEVEL AT THIS TIME 10/29. DENIES NAUSEA, VOMITING AND DIARRHEA. IV ACCESS ON LEFT HAND PATENT AND INTACT WITH NS AT 55 ML/HR INFUSING WELL. PORT A CATH AT RIGHT UPPER CHEST WITH ONGOING TPN #6 AT 80 ML/HR. ASSISTED TO THE BATH ROOM, FALL PRECAUTION OBSERVED. KEPT COMFORTABLE AND ATTENDED. WILL CONTINUE TO MONITOR PT.
[2017-01-23 20:11] VITALS: BP 144/76
[2017-01-23] MEDS: ENOXAPARIN SODIUM 40 MG/0.4 ML DISP.SYRIN SQ SCH (21:04)
[2017-01-23] MEDS: IV NS 0.9% 1,000 ML IV PRN (21:07)
[2017-01-23 22:00] VITALS: BP 144/76
--- NOTE | 2017-01-23 22:23 | NUR ---
RN NOTES PT COMPLAINS OF ABDOMINAL PAIN 02/28, DILAUDID 1 MG GIVEN IV. WILL CONTINUE TO MONITOR PT.
[2017-01-24] MEDS: BLOOD SUGAR DIAGNOSTIC 1 EACH STRIP IN SCH ×3 (00:22→11:39)
[2017-01-24] MEDS: INSULIN REGULAR, HUMAN 100 UNIT/ML 3 ML VIAL SQ PRN ×2 (00:23→05:57)
--- NOTE | 2017-01-24 00:23 | NUR ---
RN NOTES BLOOD SUGAR CHECKED 129 MG/DL, NO INSULIN COVERAGE PER SLIDING SCALE.
[2017-01-24] MEDS ORDERED: FILTER SET SAVER IV SET 1 EA INFUS.SET MC ONE (01:20)
[2017-01-24] MEDS: HYDROMORPHONE INJ 2 MG/ML DISP.SYRIN IV PRN ×4 (02:30→15:36)
--- NOTE | 2017-01-24 02:30 | NUR ---
RN NOTES PT VERBALIZED ABDOMINAL PAIN AT 8/10 RATING, DILAUDID 1 MG GIVEN IV. WILL CONTINUE TO MONITOR PT.
[2017-01-24] MEDS: ONDANSETRON HCL/PF 4 MG/2 ML VIAL IVP PRN (02:38)
--- NOTE | 2017-01-24 02:38 | NUR ---
RN NOTES PT FEELS NAUSEATED, ZOFRAN 4 MG GIVEN IV. WILL CONTINUE TO MONITOR.
[2017-01-24] MEDS: METRONIDAZOLE 500MG/ NS 100ML 500 MG in PREMIX 1 EA IV SCH ×2 (05:50→13:47)
--- NOTE | 2017-01-24 05:57 | NUR ---
RN NOTES BLOOD SUGAR CHECKED 123 MG/DL, NO INSULIN COVERAGE PER SLIDING SCALE.
--- NOTE | 2017-01-24 06:37 | NUR ---
RN NOTES PT COMPLAINS OF ABDOMINAL PAIN 02/28, DILAUDID 1 MG GIVEN IV. WILL CONTINUE TO MONITOR.
[2017-01-24 07:00] LABS: BASOPHILS % (AUTO) 0.2 % (0.0-2.0); EOSINOPHILS # (AUTO) 0.1 /CMM (0.0-0.7); EOSINOPHILS % (AUTO) 1.1 % (0.0-6.0); HEMATOCRIT 30 % (33-45); HEMOGLOBIN 9.7 g/dL (11.5-14.8); LYMPHOCYTES # (AUTO) 2.2 /CMM (0.8-4.8); LYMPHOCYTES % (AUTO) 23.6 % (20.0-44.0); MEAN CORPUSCULAR HEMOGLOBIN 31 PG (26.0-33.0); MEAN CORPUSCULAR HGB CONC 33 g/dl (31.0-36.0); MEAN CORPUSCULAR VOLUME 96 fL (82-100); MONOCYTES # (AUTO) 1.5 /CMM (0.1-1.30); MONOCYTES % (AUTO) 16.6 % (2.0-12.0); NEUTROPHILS # (AUTO) 5.4 /CMM (1.8-8.9); NEUTROPHILS % (AUTO) 58.5 % (43.0-81.0); PLATELET COUNT (AUTO) 310 /CMM (150-450); RDW COEFFICIENT OF VARIATION 29.5 (11.5-15.0); RED BLOOD CELL COUNT(AUTO) 3.09 MIL/uL (4.0-5.2); WHITE BLOOD COUNT (AUTO) 9.3 K/uL (4.3-11.0)
[2017-01-24 07:22] LABS: CALCIUM, SERUM 7.3 mg/dL (8.5-10.1); CREATININE 0.4 mg/dL (0.6-1.3); MAGNESIUM 1.6 mg/dL (1.8-2.4); PHOSPHORUS 2.3 mg/dL (2.5-4.9); POTASSIUM 3.4 mmol/L (3.5-5.1)
--- NOTE | 2017-01-24 07:35 | NUR ---
MS RN OPENING NOTE PATIENT IS ALERT AND ORIENTED x4. NO PAIN AT THIS TIME. NO SOB OR DISTRESS NOTED. CALL LIGHT WITHIN REACH. SAFETY MEASURES IMPLEMENTED. ABLE TO COMMUNICATE NEEDS. IV INTACT AND PATENT, NO REDNESS OR SWELLING NOTED. RIGHT UPPER CHEST WALL PORT A CATH INTACT AND PATENT. TPN RUNNING AT THIS TIME, 80 ML/HR. POSSIBLE DISCHARGE TODAY. WILL CONTINUE TO MONITOR
--- NOTE | 2017-01-24 07:39 | NUR ---
RN NOTES PT ASLEEP, BREATHING REGULAR AND UNLABORED, NO SIGNS OF DISTRESS AND DISCOMFORT NOTED. VITAL SIGNS STABLE, AFEBRILE. PT VOMITED 1X, NOTED WITH WATERY STOOL X4. KEPT PAIN AT TOLERABLE LEVEL. ENCOURAGED INCREASE PO INTAKE AND TO TAKE BOOST AT BEDSIDE. PT WANTS TO TALK TO THE OFFSET PRINTER / CM REGARDING D/C PLANNING. ALL NEEDS ATTENDED. ENDORSED TO MORNING RN FOR CONTINUITY OF CARE.
[2017-01-24 07:58] LABS: BAND % (MANUAL) 7 % (0.0-5.0); LYMPHOCYTES % (MANUAL) 22 % (16-48); METAMYELOCYTES % 1 % (0-0); MONOCYTES % (MANUAL) 9 % (0-11.0); NEUTROPHILS % (MANUAL) 61 (42-76)
[2017-01-24 08:00] VITALS: BP 90/65
[2017-01-24] MEDS: BOOST PLUS FOOD-CHOCLATE 237 ML BOX PO SCH ×3 (08:14→17:00)
[2017-01-24] MEDS: PANTOPRAZOLE 40 MG VIAL IV SCH (08:14)
[2017-01-24] MEDS: NEOMY SULF/BACITRAC ZN/POLY 15 GM TUBE TP SCH ×2 (08:15→17:00)
[2017-01-24] MEDS ORDERED: LEVO750T46 PO (10:35)
[2017-01-24] MEDS ORDERED: [UNRECOGNIZED DRUG - REMARK] IV (10:35)
[2017-01-24] MEDS ORDERED: NEUTRA PHOS 1 POWD.PACKET PO ONE (11:00)
[2017-01-24] MEDS ORDERED: Magnesium 1GM/D5W 100ML PREMIX 100 ML IV SCH (11:30)
[2017-01-24] MEDS ORDERED: SECONDARY IV SET 1 EA INFUS.SET MC ONE (11:35)
[2017-01-24] MEDS: LEVOFLOXACIN 500 MG /D5W 100ML 500 MG in PREMIX 1 EA IV SCH (12:32)
[2017-01-24] MEDS ORDERED: TPN BAG #8 IV PRN ×7 (14:00)
[2017-01-24] MEDS ORDERED: HYDR-552 PO (14:47)
[2017-01-24 16:00] VITALS: BP 118/78
--- NOTE | 2017-01-24 18:20 | NUR ---
MS OIL FIRE SPECIALIST NOTE PATIENT IS ALERT AND ORIENTED x4. HOME WITH HOME HEALTH NO PAIN AT THIS TIME. NO SOB OR DISTRESS NOTED. CALL LIGHT WITHIN REACH AT ALL TIMES. SAFETY MEASURES IMPLEMENTED. IV REMOVED SKIN INTACT AND PATENT NO REDNESS OR SWELLING NOTED. DISCHARGE INSTRUCTIONS GIVEN AND VERBAL INSTRUCTIONS RETURNED. ALL PATIENTS BELONGINGS WITH MOM AND PATIENT. PATIENT SENT HOME WITH MEDICATION. LEFT VIA AMBULANCE.
[2017-01-24] MEDS ORDERED: TPN BAG #9 IV PRN ×9 (23:00)
== END 2017-01-24 18:15 | disposition home health service (06) | DRG 871 ==
LOC: ER 16:38 → TELE 18:52 → MED 01-22 10:20
PROVIDERS: ADMIT Internal Medicine; ATTEND Internal Medicine
DX: A41.9 Sepsis, unspecified organism (principal); I21.4 Non-ST elevation (NSTEMI) myocardial infarction; N17.0 Acute kidney failure with tubular necrosis; C18.9 Malignant neoplasm of colon, unspecified; N39.0 Urinary tract infection, site not specified; E87.1 Hypo-osmolality and hyponatremia; E87.2 Acidosis; C78.7 Secondary malignant neoplasm of liver and intrahepatic bile duct; R55 Syncope and collapse; E87.6 Hypokalemia; E83.42 Hypomagnesemia; E86.0 Dehydration; B96.20 Unspecified Escherichia coli [E. coli] as the cause of diseases classified elsewhere; E83.39 Other disorders of phosphorus metabolism; Z85.038 Personal history of other malignant neoplasm of large intestine; Z79.899 Other long term (current) drug therapy; R11.2 Nausea with vomiting, unspecified; T45.1X5A Adverse effect of antineoplastic and immunosuppressive drugs, initial encounter; Y92.009 Unspecified place in unspecified non-institutional (private) residence as the place of occurrence of the external cause; H60.391 Other infective otitis externa, right ear; D72.825 Bandemia; E02 Subclinical iodine-deficiency hypothyroidism; D63.8 Anemia in other chronic diseases classified elsewhere; D50.9 Iron deficiency anemia, unspecified; E86.1 Hypovolemia; L08.9 Local infection of the skin and subcutaneous tissue, unspecified; R93.5 Abnormal findings on diagnostic imaging of other abdominal regions, including retroperitoneum
CPT/HCPCS: 36415; 71010-TC; 71250-TC; 78226; 80048-TC; 80053-TC; 80076-TC; 81000-TC; 82248-TC; 82272-TC; 82728-TC; 82746; 82962-TC; 83540-TC; 83605-TC; 83735-TC; 84100-TC; 84439-TC; 84443-TC; 84478-TC; 84484-TC; 85025-TC; 87040-TC; 87045-TC; 87081-TC; 87086-TC; 87186-TC; 89055; 93307-TC; 97001-TC; 97116-TC; 97530-TC; A4216; A4606; A9537; A9563; C9113; J1170; J1650; J1815; J1956; J2270; J2405; J3475; J3480; J3490; J7030; J7060; Q0164; Z7610

== ENCOUNTER 2017-12-24 11:28 | Inpatient (IN) | payer BC, OTHER ==
[~2017-12-24] VITALS: Ht 172.7 cm; Wt 49.9 kg
[~2017-12-24 11:28] MED LIST: DIPH1TAB70 PO; HYDR-552 PO; LEVO750T46 PO; LORA1TAB PO; ONDA4TAB5 PO; PROC-11 PO; [UNRECOGNIZED DRUG - REMARK] IV
[2017-12-24] MEDS ORDERED: MORPHINE SULFATE INJ 2 MG/ML DISP.SYRIN IV ONE (12:00)
[2017-12-24] MEDS ORDERED: IV NS 0.9% 1,000 ML BAG IV ONE (12:00)
[2017-12-24] MEDS ORDERED: ONDANSETRON HCL/PF 4 MG/2 ML VIAL IVP ONE (12:00)
[2017-12-24] MEDS ORDERED: ONDANSETRON HCL/PF 4 MG/2 ML VIAL ONE (12:02)
[2017-12-24] MEDS ORDERED: MORPHINE SULFATE INJ 4 MG/ML DISP.SYRIN ONE (12:03)
--- NOTE | 2017-12-24 12:14 | NUR ---
IV ACCESS STARTED. BLOOD DRAWN FOR LABS. MEDICATED ORDERED.
[2017-12-24 12:15] LABS: BASOPHILS % (AUTO) 0.1 % (0.0-2.0); EOSINOPHILS % (AUTO) 2.7 % (0.0-6.0); HEMATOCRIT 37 % (33-45); HEMOGLOBIN 12.4 g/dL (11.5-14.8); LYMPHOCYTES % (AUTO) 19.3 % (20.0-44.0); MEAN CORPUSCULAR HGB CONC 34 g/dl (31.0-36.0); MEAN CORPUSCULAR VOLUME 95 fL (82-100); MONOCYTES # (AUTO) 0.3 /CMM (0.1-1.30); MONOCYTES % (AUTO) 4.7 % (2.0-12.0); NEUTROPHILS % (AUTO) 73.2 % (43.0-81.0); PLATELET COUNT (AUTO) 368 /CMM (150-450); RDW COEFFICIENT OF VARIATION 19.3 (11.5-15.0); RED BLOOD CELL COUNT(AUTO) 3.84 MIL/uL (4.0-5.2); WHITE BLOOD COUNT (AUTO) 5.4 K/uL (4.3-11.0)
[2017-12-24 12:23] LABS: APPEARANCE,URINE Cloudy (CLEAR); BILIRUBIN,URINE SMALL (NEGATIVE); BLOOD, URINE Moderate Ery/uL (NEGATIVE); COLOR,URINE Dark (YELLOW); KETONES,URINE 40 (NEGATIVE); LEUKOCYTE ESTERASE ,URINE Small (NEGATIVE); NITRITE, URINE Negative (NEGATIVE); PH,URINE 5.5 (5.0-8.0); PROTEIN,URINE 30 mg/dl (NEGATIVE); UGLUCOSE Negative (NEGATIVE); UROBILINOGEN,URINE 0.2 EU/dL (0.2)
[2017-12-24 12:25] LABS: CALCIUM, SERUM 8.3 mg/dL (8.5-10.1); CREATININE 0.8 mg/dL (0.6-1.3); POTASSIUM 3.1 mmol/L (3.5-5.1)
[2017-12-24 12:29] LABS: INR 1.07 (0.85-1.15)
[2017-12-24 12:30] LABS: ALBUMIN 3.3 g/dL (3.4-5.0); BILIRUBIN,DIRECT 0.2 mg/dL (0.0-0.2); BILIRUBIN,TOTAL 0.7 mg/dL (0.2-1.0); TOTAL PROTEIN, SERUM 6.9 g/dL (6.4-8.2)
[2017-12-24 12:32] LABS: BACTERIA,URINE Few /HPF (None Seen); SQUAMOUS EPITHELIAL CELL,UR Few /HPF (None Seen)
[2017-12-24 12:33] LABS: MUCUS,URINE Few /LPF (None Seen)
[2017-12-24 12:40] LABS: URIC ACID CRYSTALS,URINE Rare /HPF (None Seen)
[2017-12-24 13:09] LABS: BAND % (MANUAL) 4 % (0.0-5.0); EOSINOPHILS % (MANUAL) 2 % (0-4); LYMPHOCYTES % (MANUAL) 19 % (16-48); MONOCYTES % (MANUAL) 5 % (0-11.0); NEUTROPHILS % (MANUAL) 70 (42-76)
[2017-12-24] MEDS ORDERED: POTASSIUM CHLORIDE 20 MEQ TAB.PRT.SR PO ONE ×2 (13:30→13:31)
--- NOTE | 2017-12-24 14:00 | NUR ---
IV removed. Catheter intact and site benign. Pressure and 4x4 applied to site. No bleeding noted.
--- NOTE | 2017-12-24 14:11 | NUR ---
Patient discharged to home in stable condition. Written and verbal after care instructions given. Patient verbalizes understanding of instruction.
--- NOTE | 2017-12-24 15:01 | NUR ---
CALLED NURSING MEDICAL TRANSCRIPTION EDITOR AND REQUESTED A MED SURG BED FOR THIS PT.
[2017-12-24] MEDS ORDERED: HYDR-548 PO (15:27)
[2017-12-24] MEDS ORDERED: CAPE500T15 PO (15:27)
--- NOTE | 2017-12-24 15:51 | NUR ---
PT IS ASSIGNED TO MED SURG #: [id number] DX: DEHYDRATION AND LOWER GI BLEED ACCEPTING MD: BELEM
--- NOTE | 2017-12-24 16:15 | NUR ---
REPORT GIVEN TO SAUD PARMAR FOR MS 326.
[2017-12-24 16:30] VITALS: BP 92/56
--- NOTE | 2017-12-24 16:30 | NUR ---
m/s medical technologist generalist: admission admitted this 57 yr old female pt from [facility] with dx: dehydration. awake, a/ox4; ambulatory. no c/o n/v/d at this time. voiced no discomfort. oriented to room and surroundings. all orders acknowledged. vss. afebrile. instructed to call for assistance. will continue to monitor.
[2017-12-24] MEDS ORDERED: ZOLPIDEM TARTRATE 5 MG TABLET PO PRN (17:00)
[2017-12-24] MEDS ORDERED: ACETAMINOPHEN 325 MG TABLET PO PRN (17:00)
[2017-12-24] MEDS ORDERED: MAGNESIUM HYDROXIDE 30 ML UDC PO PRN (17:00)
[2017-12-24] MEDS ORDERED: Z GUARD REMEDY 2 OZ OINT TP PRN (17:00)
[2017-12-24] MEDS ORDERED: IV NS 0.9% 1,000 ML IV PRN (17:00)
--- NOTE | 2017-12-24 17:00 | NUR ---
m/s instrument and electrical technician: md visit dr. espinosa at bedside at this time.
[2017-12-24] MEDS ORDERED: LEVOFLOXACIN (500MG) 500 MG TABLET PO SCH (19:00)
[2017-12-24] MEDS ORDERED: HYDROCODONE/APAP 10/325MG 1 EA TABLET PO PRN (19:00)
--- NOTE | 2017-12-24 19:10 | NUR ---
m/s assistant men's soccer coach: notes stool collected and lab notified, spoke to deja to crab picker the specimen. report given to patti (eva) for continuity of care.
[2017-12-24] MEDS: MORPHINE SULFATE SR 30 MG TABLET.SA PO SCH (19:11)
--- NOTE | 2017-12-24 19:11 | NUR ---
m/s rolloff driver: notes c/o 02/28 abdominal pain, medicated with ms contin 30mg po as ordered. instructed to call for assistance. at bedside. will continue to monitor.
--- NOTE | 2017-12-24 19:15 | NUR ---
MS RN OPENING NOTE RECEIVED PATIENT IN BED, ALERT ORIENTED X4, ON ROOM AIR, TOLERATING WELL. IN NO APPARENT DISTRESS OR DISCOMFORT AT THIS TIME, DENIES PAIN AND SOB, RESPIRATION EVEN AND UNLABORED. PATIENT WITH BRP ABLE TO INDEPENDENTLY AMBULATE. RIGHT AC 20G IVC WITH NS RUNNING AT 100ML/HR. NO SIGN OF INFILTRATION OBSERVED. DENIES NAUSEA AND VOMITING AT THIS TIME. PATIENT IS ABLE TO VERBALIZE NEEDS, ORIENTED TO THE CALL LIGHT AND TO CALL FOR HELP IF NEEDED. PATIENT KEPT CLEAN AND COMFORTABLE. SAFETY MEASURES IN PLACE, SIDE RAILS UP X2, CALL LIGHT WITHIN EASY REACH. WILL CONTINUE TO MONITOR.
[2017-12-24 20:00] VITALS: BP 98/55
[2017-12-24] MEDS: MAG HYDROX/AL HYDROX/SIMETH 30 ML UDC PO PRN ×2 (21:18→22:32)
[2017-12-24] MEDS: LIDOCAINE VISCOUS 2% UD 15 ML UDC MM SCH ×2 (21:18→22:32)
--- NOTE | 2017-12-24 21:30 | NUR ---
PATIENT HAD AN EPISODE OF VOMITING SMALL AMOUNT, SMALL AMOUNT OF FRESH BLOOD TRACES PRESENT, POSSIBLY FROM MOUTH SORES. WILL ADMINISTER ANTINAUSEA MEDICATION AND CONTINUE TO MONITOR FOR ANY CHANGES IN THE CONDITION OR OTHER SIGNS OF BLEEDING.
[2017-12-24] MEDS: ONDANSETRON HCL/PF 4 MG/2 ML VIAL IVP PRN (21:36)
[2017-12-24] MEDS: HYDROCODONE/APAP 5/325MG 1 EACH TABLET PO PRN (22:32)
[2017-12-25] MEDS: HYDROCODONE/APAP 5/325MG 1 EACH TABLET PO PRN (02:33)
[2017-12-25] MEDS: ONDANSETRON HCL/PF 4 MG/2 ML VIAL IVP PRN (05:58)
--- NOTE | 2017-12-25 06:51 | NUR ---
MS RN CLOSING NOTE PATIENT IN BED, ALERT ORIENTED X4, ON ROOM AIR, TOLERATING WELL. IN NO APPARENT DISTRESS OR DISCOMFORT AT THIS TIME, DENIES PAIN AND SOB, RESPIRATION EVEN AND UNLABORED. PATIENT WITH BRP ABLE TO INDEPENDENTLY AMBULATE. RIGHT FA 20G IVC WITH NS RUNNING AT 100ML/HR. NO SIGN OF INFILTRATION OBSERVED. DENIES NAUSEA AND VOMITING AT THIS TIME. PATIENT HAD SEVERAL EPISODES OF DIARRHEA THROUGHOUT THE NIGHT. PATIENT IS ABLE TO VERBALIZE NEEDS, ORIENTED TO THE CALL LIGHT AND TO CALL FOR HELP IF NEEDED. PATIENT KEPT CLEAN AND COMFORTABLE. SAFETY MEASURES IN PLACE, SIDE RAILS UP X2, CALL LIGHT WITHIN EASY REACH. WILL ENDORSE TO AM NURSE FOR CH[place]MAY.
--- NOTE | 2017-12-25 07:00 | NUR ---
MSRN NOTES. PT NPO EXCEPT MEDS. PT RECEIVED A&0X3, AWAKE AND RESTING IN BED. PT TOLERATING ROOM AIR WITHOUT RESP DISTRESS. PT REPORTS IRAM-RECTAL PAIN R/T DIARRHEA, DENIES NAUSEA, NO OTHER COMPLAINTS AT THIS TIME. PT WITH IVC AT R FA INTACT AND OPERATIONAL. PT BED IN LOWEST LOCKED POSITION WITH HANDRAILSX2 AND CALL CHAVEZ WITHIN REACH. PT BRIEFED ON TODAY'S POC AND IS WITHOUT CONCERN OR COMPLAINT AT THIS TIME.
[2017-12-25 07:35] LABS: BASOPHILS % (AUTO) 0.2 % (0.0-2.0); EOSINOPHILS % (AUTO) 8.7 % (0.0-6.0); HEMATOCRIT 28 % (33-45); HEMOGLOBIN 9.5 g/dL (11.5-14.8); LYMPHOCYTES # (AUTO) 1.3 /CMM (0.8-4.8); LYMPHOCYTES % (AUTO) 34.1 % (20.0-44.0); MEAN CORPUSCULAR HGB CONC 34 g/dl (31.0-36.0); MEAN CORPUSCULAR VOLUME 97 fL (82-100); MONOCYTES # (AUTO) 0.3 /CMM (0.1-1.30); MONOCYTES % (AUTO) 6.5 % (2.0-12.0); NEUTROPHILS % (AUTO) 50.5 % (43.0-81.0); PLATELET COUNT (AUTO) 230 /CMM (150-450); RDW COEFFICIENT OF VARIATION 20.1 (11.5-15.0); RED BLOOD CELL COUNT(AUTO) 2.89 MIL/uL (4.0-5.2); WHITE BLOOD COUNT (AUTO) 3.9 K/uL (4.3-11.0)
[2017-12-25 07:38] LABS: CALCIUM, SERUM 7.9 mg/dL (8.5-10.1); CREATININE 0.6 mg/dL (0.6-1.3); MAGNESIUM 1.7 mg/dL (1.8-2.4); PHOSPHORUS 2.7 mg/dL (2.5-4.9); POTASSIUM 3.4 mmol/L (3.5-5.1)
[2017-12-25 08:00] VITALS: BP 101/68
[2017-12-25] MEDS: MORPHINE SULFATE SR 30 MG TABLET.SA PO SCH (08:43)
[2017-12-25] MEDS: LIDOCAINE VISCOUS 2% UD 15 ML UDC MM SCH ×3 (08:43→16:32)
[2017-12-25] MEDS: MAG HYDROX/AL HYDROX/SIMETH 30 ML UDC PO PRN ×3 (08:46→16:32)
[2017-12-25] MEDS ORDERED: IV NS 0.9% 1,000 ML BAG IV SCH (09:00)
[2017-12-25] MEDS ORDERED: MAGNESIUM OXIDE 400 MG TABLET PO ONE (11:00)
[2017-12-25] MEDS ORDERED: POTASSIUM CHLORIDE 20 MEQ TAB.PRT.SR PO ONE (11:00)
[2017-12-25] MEDS ORDERED: LOPERAMIDE HCL (2 MG CAP) 2 MG CAPSULE PO PRN (11:00)
[2017-12-25] MEDS: Magnesium 1GM/D5W 100ML PREMIX 100 ML IV SCH ×2 (11:24→12:39)
--- NOTE | 2017-12-25 17:00 | NUR ---
MSRN D/C NOTES. PT PREPARED FOR D/C PER MD. PT TOLERATING ROOM AIR WITHOUT SOB OR RESP DISTRESS. PT REPORTING ADEQUATE PAIN MANAGEMENT. PT IVC REMOVED AND NAD AT SITE. PT BRIEFED ON SOH D/C PACKET, MEDICATIONS, EDUCATION AND FOLLOW UP APPS AND IS VERBALIZING UNDERSTANDING, RESOURCES AND INTENT TO FOLLOW POC. PT WITH ALL BELONGINGS AND DOCUMENT SIGNED. PT WITH FRIEND FOR P/UP. ALL DAY NURSE DUTIES ATTENDED TO AND PT IS WITHOUT CONCERN OR COMPLAINT AND GRATEFUL FOR CARE.
== END 2017-12-25 16:40 | disposition home or self-care (01) | DRG 865 ==
LOC: ER 11:29 → MED 16:06
PROVIDERS: ADMIT Family Medicine; ATTEND Family Medicine
DX: B34.9 Viral infection, unspecified (principal); N17.0 Acute kidney failure with tubular necrosis; C78.7 Secondary malignant neoplasm of liver and intrahepatic bile duct; K52.1 Toxic gastroenteritis and colitis; C18.9 Malignant neoplasm of colon, unspecified; E44.1 Mild protein-calorie malnutrition; E86.0 Dehydration; K92.1 Melena; E87.6 Hypokalemia; Z90.49 Acquired absence of other specified parts of digestive tract; Z79.899 Other long term (current) drug therapy; R73.9 Hyperglycemia, unspecified; T45.1X5A Adverse effect of antineoplastic and immunosuppressive drugs, initial encounter; Y92.009 Unspecified place in unspecified non-institutional (private) residence as the place of occurrence of the external cause; K12.30 Oral mucositis (ulcerative), unspecified; J20.9 Acute bronchitis, unspecified
CPT/HCPCS: 36415; 80048-TC; 80061-TC; 80076-TC; 81000-TC; 83690-TC; 83735-TC; 84100-TC; 85025-TC; 85730-TC; 87081-TC; 89055; A4606; J2270; J2405; J3475; J7030; Z7610

== ENCOUNTER 2019-04-07 12:20 | Emergency (ER) | payer OTHER ==
[~2019-04-07] VITALS: Ht 172.7 cm; Wt 60.3 kg
[~2019-04-07 12:20] MED LIST changes: +CAPE500T15 PO; +HYDR-4354 PO; -HYDR-552 PO; -LEVO750T46 PO; -[UNRECOGNIZED DRUG - REMARK] IV
--- NOTE | 2019-04-07 12:30 | NUR ---
PT A/OX4, NO DISTRESS NOTED, C/O HEADACHE. PATIENT WITH CHEST PORT-A-CATH, ABLE TO USE FOR IV INFUSIONS. PATIENT WASN'T ABLE TO START CHEMO TREATMENT. NEEDS ATTENDED. ATTACHED TO THE SLURRY MIXER.
[2019-04-07] MEDS ORDERED: hydrALAZINE HCL IV 20 MG VIAL ONE (12:47)
--- NOTE | 2019-04-07 12:55 | NUR ---
EMT AT BEDSIDE FOR EKG.
[2019-04-07] MEDS ORDERED: hydrALAZINE HCL IV 20 MG VIAL IV ONE (13:00)
[2019-04-07 13:01] LABS: BASOPHILS # (AUTO) 0.1 /CMM (0.0-0.2); BASOPHILS % (AUTO) 0.6 % (0.0-2.0); EOSINOPHILS % (AUTO) 2.7 % (0.0-6.0); HEMATOCRIT 36 % (33-45); HEMOGLOBIN 11.8 g/dL (11.5-14.8); LYMPHOCYTES % (AUTO) 11.4 % (20.0-44.0); MEAN CORPUSCULAR HGB CONC 33 g/dl (31.0-36.0); MEAN CORPUSCULAR VOLUME 101 fL (82-100); MONOCYTES # (AUTO) 0.4 /CMM (0.1-1.30); MONOCYTES % (AUTO) 4.6 % (2.0-12.0); NEUTROPHILS % (AUTO) 80.7 % (43.0-81.0); PLATELET COUNT (AUTO) 181 /CMM (150-450); RED BLOOD CELL COUNT(AUTO) 3.56 MIL/uL (4.0-5.2); WHITE BLOOD COUNT (AUTO) 8.7 K/uL (4.3-11.0)
[2019-04-07 13:07] LABS: CALCIUM, SERUM 8.2 mg/dL (8.5-10.1); CARBON DIOXIDE 28 mmol/L (21-32); CHLORIDE 106 mmol/L (98-107); CREATININE 0.8 mg/dL (0.6-1.3); GLUCOSE 99 mg/dL (74-106); POTASSIUM 3.4 mmol/L (3.5-5.1); SODIUM SERUM 141 mmol/L (136-145); UREA NITROGEN, BLOOD 16 mg/dL (7-18)
[2019-04-07 13:12] LABS: ALANINE AMINOTRANSFERASE 67 U/L (12-78); ALBUMIN 2.5 g/dL (3.4-5.0); ALKALINE PHOSPHATASE 388 U/L (46-116); ASPARTATE AMINOTRANSFERASE 83 U/L (15-37); BILIRUBIN,DIRECT 0.2 mg/dL (0.0-0.2); BILIRUBIN,TOTAL 0.4 mg/dL (0.2-1.0); TOTAL PROTEIN, SERUM 5.2 g/dL (6.4-8.2)
--- NOTE | 2019-04-07 13:51 | NUR ---
CALLED DR. JOSEPH. HAYDE FITCH CONNECTED TO DR. JOSEPH VIA PHONE.
[2019-04-07] MEDS ORDERED: CLONIDINE HCL 0.1 MG TABLET ONE (14:52)
[2019-04-07] MEDS ORDERED: CLONIDINE HCL 0.1 MG TABLET PO ONE (15:00)
[2019-04-07 16:16] VITALS: BP 142/90
--- NOTE | 2019-04-07 16:17 | NUR ---
Patient discharged to home in stable condition. Written and verbal after care instructions given. Patient verbalizes understanding of instruction. States "feel better"
== END 2019-04-07 16:16 | disposition home or self-care (01) ==
LOC: ER 12:22
DX: I16.0 Hypertensive urgency (principal); Z85.038 Personal history of other malignant neoplasm of large intestine; Z79.899 Other long term (current) drug therapy
CPT/HCPCS: 36415; 70450; 80048; 80076; 84484; 85025; 93005; 96374; 99284; J0360

== ENCOUNTER → 2019-04-11 | Emergency (ER) | payer OTHER ==
[~2019-04-11] VITALS: Ht 172.7 cm; Wt 59.0 kg
[~2019-04-11] MED LIST changes: +HYDROMORPHONE 1 MG/1 ML DISP.SYRIN ONE; +HYDROMORPHONE INJ 2 MG/ML DISP.SYRIN IV ONE; +LIDOCAINE VISCOUS 2% UD 15 ML UDC MM ONE; +LIDOCAINE VISCOUS 2% UD 15 ML UDC ONE; +ONDANSETRON HCL/PF 4 MG/2 ML VIAL IVP ONE; +ONDANSETRON HCL/PF 4 MG/2 ML VIAL ONE
--- NOTE | 2019-04-11 10:40 | NUR ---
DR ROSE AT BEDSIDE FOR EVAL.
[2019-04-11 10:52] LABS: BASOPHILS # (AUTO) 0.1 /CMM (0.0-0.2); BASOPHILS % (AUTO) 0.8 % (0.0-2.0); EOSINOPHILS % (AUTO) 4.7 % (0.0-6.0); HEMATOCRIT 38 % (33-45); HEMOGLOBIN 12.5 g/dL (11.5-14.8); LYMPHOCYTES # (AUTO) 1.3 /CMM (0.8-4.8); LYMPHOCYTES % (AUTO) 20.2 % (20.0-44.0); MEAN CORPUSCULAR HGB CONC 33 g/dl (31.0-36.0); MEAN CORPUSCULAR VOLUME 101 fL (82-100); MONOCYTES # (AUTO) 0.6 /CMM (0.1-1.30); MONOCYTES % (AUTO) 9.2 % (2.0-12.0); NEUTROPHILS # (AUTO) 4.3 /CMM (1.8-8.9); NEUTROPHILS % (AUTO) 65.1 % (43.0-81.0); PLATELET COUNT (AUTO) 271 /CMM (150-450); RED BLOOD CELL COUNT(AUTO) 3.74 MIL/uL (4.0-5.2); WHITE BLOOD COUNT (AUTO) 6.6 K/uL (4.3-11.0)
--- NOTE | 2019-04-11 10:52 | NUR ---
PT REC'D TO ERC/O HIGH BP IV STARTED 20G LEFT AC FAMILY AT BEDSIDE PT WAS HERE ON Saturday04/10/19
[2019-04-11 11:09] LABS: CALCIUM, SERUM 8.5 mg/dL (8.5-10.1); CARBON DIOXIDE 29 mmol/L (21-32); CHLORIDE 105 mmol/L (98-107); CREATININE 0.9 mg/dL (0.6-1.3); GLUCOSE 107 mg/dL (74-106); POTASSIUM 4.2 mmol/L (3.5-5.1); SODIUM SERUM 142 mmol/L (136-145); UREA NITROGEN, BLOOD 13 mg/dL (7-18)
--- NOTE | 2019-04-11 11:32 | NUR ---
PT TO RADIOLOGY DEPT VIA [facility].
--- NOTE | 2019-04-11 11:33 | NUR ---
PT SENT TO XRAY
--- NOTE | 2019-04-11 13:59 | NUR ---
PT. VERBALIZED UNDERSTANDING OF AFTERCARE INSTRUCTIONS.IV removed. Catheter intact and site benign. Pressure and 4x4 applied to site. No bleeding noted.
[2019-04-11 14:01] VITALS: BP 152/94
== END | disposition home or self-care (01) ==
LOC: ER 10:05
DX: R51 Headache (principal); I10 Essential (primary) hypertension; K08.89 Other specified disorders of teeth and supporting structures; Z88.6 Allergy status to analgesic agent; Z85.038 Personal history of other malignant neoplasm of large intestine; Z85.05 Personal history of malignant neoplasm of liver; Z79.899 Other long term (current) drug therapy
CPT/HCPCS: 70450; 71045; 80048; 84484; 85025; 93005; 96374; 96375; 99284; J1170; J2405; 36415

== ENCOUNTER 2019-05-01 08:50 | Emergency (ER) | payer OTHER, MEDICAID ==
[~2019-05-01] VITALS: Ht 172.7 cm; Wt 61.2 kg
[~2019-05-01 08:50] MED LIST changes: -HYDROMORPHONE 1 MG/1 ML DISP.SYRIN ONE; -HYDROMORPHONE INJ 2 MG/ML DISP.SYRIN IV ONE; -LIDOCAINE VISCOUS 2% UD 15 ML UDC MM ONE; -LIDOCAINE VISCOUS 2% UD 15 ML UDC ONE; -ONDANSETRON HCL/PF 4 MG/2 ML VIAL IVP ONE; -ONDANSETRON HCL/PF 4 MG/2 ML VIAL ONE
--- NOTE | 2019-05-01 09:19 | NUR ---
PT BROUGHT IN BY SELF WITH C/O OF RIGHT TOOTH PAIN AND LOWER EXTREMITIES EDEMA FOR X1 MONTH. STATES THAT SHE TAKES AMLODIPINE X1 MONTH AGO WE VSS. NO ACUTE DISTRESS NOTED. BREATH SOUNDS CLEAR BILATERALLY. BREATHING EVEN AND UNLABORED. NO SOB. PATIENT CONNECTED TO MONITOR.
[2019-05-01] MEDS ORDERED: LIDOCAINE VISCOUS 2% UD 15 ML UDC MM ONE (09:30)
[2019-05-01] MEDS ORDERED: HYDROMORPHONE INJ 2 MG/ML DISP.SYRIN IV ONE (09:30)
[2019-05-01] MEDS ORDERED: HYDROMORPHONE 1 MG/1 ML DISP.SYRIN ONE (09:34)
[2019-05-01] MEDS ORDERED: LIDOCAINE VISCOUS 2% UD 15 ML UDC ONE (09:34)
--- NOTE | 2019-05-01 09:35 | NUR ---
BLOOD DRAWN AND SENT TO LAB.
--- NOTE | 2019-05-01 09:45 | NUR ---
PATIENT TAKEN BY RADIOLOGY FOR CT OF HEAD AND XR OF CHEST.
[2019-05-01 09:46] LABS: BASOPHILS % (AUTO) 0.6 % (0.0-2.0); EOSINOPHILS % (AUTO) 4.9 % (0.0-6.0); HEMATOCRIT 37 % (33-45); HEMOGLOBIN 12.5 g/dL (11.5-14.8); LYMPHOCYTES % (AUTO) 18.4 % (20.0-44.0); MEAN CORPUSCULAR HGB CONC 34 g/dl (31.0-36.0); MEAN CORPUSCULAR VOLUME 100 fL (82-100); MONOCYTES # (AUTO) 0.1 /CMM (0.1-1.30); MONOCYTES % (AUTO) 2.5 % (2.0-12.0); NEUTROPHILS # (AUTO) 3.9 /CMM (1.8-8.9); NEUTROPHILS % (AUTO) 73.6 % (43.0-81.0); PLATELET COUNT (AUTO) 107 /CMM (150-450); RED BLOOD CELL COUNT(AUTO) 3.72 MIL/uL (4.0-5.2); WHITE BLOOD COUNT (AUTO) 5.2 K/uL (4.3-11.0)
[2019-05-01 09:54] LABS: CALCIUM, SERUM 7.9 mg/dL (8.5-10.1); CREATININE 0.8 mg/dL (0.6-1.3); POTASSIUM 3.2 mmol/L (3.5-5.1)
[2019-05-01 10:00] LABS: ALBUMIN 2.4 g/dL (3.4-5.0); BILIRUBIN,DIRECT 0.2 mg/dL (0.0-0.2); BILIRUBIN,TOTAL 0.5 mg/dL (0.2-1.0); TOTAL PROTEIN, SERUM 5.5 g/dL (6.4-8.2)
[2019-05-01 10:06] LABS: B-TYPE NATRIURETIC PEPTIDE 660 PG/ML (0-125)
[2019-05-01] MEDS ORDERED: POTASSIUM CL. PREMIX PERIPHER. 50 ML IV SCH (10:30)
[2019-05-01] MEDS ORDERED: POTASSIUM CHLORIDE 20 MEQ POWDER PACKET PO ONE (10:30)
[2019-05-01] MEDS ORDERED: POTASSIUM CL. PREMIX PERIPHER. 50 ML ONE (10:36)
[2019-05-01] MEDS ORDERED: POTASSIUM CHLORIDE 20 MEQ POWDER PACKET ONE (10:36)
--- NOTE | 2019-05-01 11:03 | NUR ---
spoke w/ tim regarding pt.
[2019-05-01] MEDS ORDERED: KETOROLAC TROMETHAMINE 15 MG/ML VIAL ONE (11:19)
[2019-05-01] MEDS ORDERED: KETOROLAC TROMETHAMINE INJ 30 MG/ML VIAL IV ONE (11:30)
--- NOTE | 2019-05-01 12:23 | NUR ---
IV removed. Catheter intact and site benign. Pressure and 4x4 applied to site. No bleeding noted. ID band removed. Patient discharged to home in stable condition. Written and verbal after care instructions given. Patient verbalizes understanding of instruction.
[2019-05-01 12:24] VITALS: BP 141/75
== END 2019-05-01 12:25 | disposition home or self-care (01) ==
LOC: ER 08:56
DX: I82.412 Acute embolism and thrombosis of left femoral vein (principal); I10 Essential (primary) hypertension; R51 Headache; K08.89 Other specified disorders of teeth and supporting structures; R60.0 Localized edema; R00.1 Bradycardia, unspecified; E87.6 Hypokalemia; Z85.038 Personal history of other malignant neoplasm of large intestine; Z85.05 Personal history of malignant neoplasm of liver; Z88.5 Allergy status to narcotic agent; Z79.899 Other long term (current) drug therapy
CPT/HCPCS: 36415; 70450; 71045; 80048; 80076; 83880; 84484; 85025; 93005 ×2; 93970; 96374; 96375; 99284; J1170; J1885; J3480

== ENCOUNTER 2019-05-05 17:45 | Emergency (ER) | payer OTHER, MEDICAID ==
[~2019-05-05] VITALS: Ht 172.7 cm; Wt 58.5 kg
--- NOTE | 2019-05-05 17:52 | NUR ---
PT BIB FAMILY C/O HTN/Tootheache/swelling Legs "was seen here couple days for same" PT IS AAOX3, NOT IN RESPIRATORY DISTRESS ,HOOKED TO MONITOR, KEPT RESTED AND COMFORTABLE, WILL CONTINUE TO MONITOR.
--- NOTE | 2019-05-05 18:16 | NUR ---
AT BEDSIDE FOR EVAL.
[2019-05-05] MEDS ORDERED: CLONIDINE HCL 0.1 MG TABLET PO ONE (18:30)
[2019-05-05] MEDS ORDERED: HYDROCODONE/APAP 10/325MG 1 EA TABLET PO ONE (18:30)
[2019-05-05] MEDS ORDERED: AMLODIPINE BESYLATE 5 MG TABLET PO ONE (18:30)
[2019-05-05] MEDS ORDERED: HYDROCODONE/APAP 10/325MG 1 EA TABLET ONE (18:37)
[2019-05-05] MEDS ORDERED: AMLODIPINE BESYLATE 5 MG TABLET ONE (18:37)
[2019-05-05] MEDS ORDERED: CLONIDINE HCL 0.1 MG TABLET ONE (18:37)
--- NOTE | 2019-05-05 19:12 | NUR ---
Patient discharged to home in stable condition. Written and verbal after care instructions given. Patient verbalizes understanding of instruction.
[2019-05-05 19:13] VITALS: BP 139/92
== END 2019-05-05 19:14 | disposition home or self-care (01) ==
LOC: ER 17:48
DX: I10 Essential (primary) hypertension (principal); K08.89 Other specified disorders of teeth and supporting structures; Z85.038 Personal history of other malignant neoplasm of large intestine; Z85.05 Personal history of malignant neoplasm of liver; Z88.5 Allergy status to narcotic agent